=== PATIENT | male | born 1950 | race Caucasian/White ===

== ENCOUNTER 2017-10-05 09:24 | Observation (INO) ==
[2017-10-05] MEDS ORDERED: Acetaminophen 325 MG Tablet PO PRN ×2 (11:55→11:57)
[2017-10-05] MEDS ORDERED: Bisacodyl 10 MG Supp RECTAL PRN (11:55)
[2017-10-05] MEDS ORDERED: Naloxone Inj 0.4 MG/ML Vial IV.PUSH PRN (11:57)
[2017-10-05] MEDS ORDERED: Morphine Inj 4 MG/ML Vial IV.PUSH PRN (11:57)
--- NOTE | 2017-10-05 14:49 | P.HP ---
History of Present Illness Primary Care Physician: Johanny Morgan History of Present Illness: This is a 67-year-old male with a history of hypertension, hyperlipidemia and BPH. He was seen in [facility] emergency room for a hand injury. States he was watching somebody install a glass window when his hand was caught. He sustained a laceration on the dorsum of the left hand in the MP joint of the index finger with tendon involvement. Patient denies numbness or inability to flex or extend left index finger. Hand surgery recommended patient to be transferred to the main hospital for repair. All other systems reviewed negative Review of Systems All other systems reviewed negative except as stated in HPI PMFSH - History History Provided By: Patient - Medical History Medical History: Medical History (Last Reviewed 10/05/17 @ 10:09 by Vinicius Bernal MD) BPH (benign prostatic hyperplasia) HTN (hypertension) High cholesterol - Surgical History Surgical History: Surgical History (Last Reviewed 10/05/17 @ 10:09 by Vinicius Bernal MD) History of prostate surgery - Family History Family History: Family History (Last Updated 10/05/17 @ 14:45 by Arley Cordon MD) Other Lung cancer - Tobacco History Second Hand Smoke Exposure: No Smoking Status: Never smoker - Alcohol History How Often Do You Have a Drink Containing Alcohol: Monthly or less - Substance Use History Substance History: No History of Abuse - Immunization History Tetanus Immunization Year if Known: 2016 Medications and Allergies Active Medications: Active Medications Acetaminophen (Tylenol) 650 mg PO Q4H PRN PRN Reason: Temp > 100.4 Acetaminophen (Tylenol) 650 mg PO Q6HR PRN PRN Reason: PAIN SCALE 1 TO 2 Hydrocodone Bitart/Acetaminophen ([place] 5/325) 1 tab PO Q4H PRN PRN Reason: PAIN SCALE 3 TO 5 Hydrocodone Bitart/Acetaminophen ([place] 7.5/325) 1 tab PO Q4H PRN PRN Reason: PAIN SCALE 6 TO 10 Al Hydroxide/Mg Hydroxide (Milk Of Magnesia Liq) 30 ml PO Q12H PRN PRN Reason: Mild Constipation Bisacodyl (Dulcolax Supp) 10 mg RECTAL DAILY PRN PRN Reason: SEVERE CONSITIPATION Clonidine HCl (Catapres) 0.1 mg PO Q6H PRN PRN Reason: SEE LABEL COMMENTS Enalaprilat (Vasotec Inj) 1.25 mg IV.PUSH Q6H PRN PRN Reason: SEE LABEL COMMENTS Potassium Chloride/Sodium Chloride (Potassium Chlor 20 Meq/Nacl 0.45% Inj) 1, 000 mls @ 70 mls/hr IV.CONT .[id number] [facility] Lactulose (Lactulose Liq) 30 ml PO DAILY PRN PRN Reason: SEVERE CONSITIPATION Morphine Sulfate (Morphine Inj) 1 mg IV.PUSH Q3H PRN PRN Reason: BREAKTHROUGH PAIN Naloxone HCl (Narcan Inj) 0.4 mg IV.PUSH UNSCH PRN PRN Reason: SEE LABEL COMMENTS Ondansetron HCl (Zofran Inj) 4 mg IV.PUSH Q6H PRN PRN Reason: NAUSEA OR VOMITING Senna/Docusate Sodium (Gabby-Colace) 1 tab PO BID [facility] Sennosides (Senokot) 17.2 mg PO Q12H PRN PRN Reason: Moderate Constipation Allergies Allergy/AdvReac Type Severity Reaction Status Date / Time No Known Allergies Allergy Verified 10/05/17 09:40 Home Medications Medication Instructions Recorded Confirmed Type amlodipine 5 mg PO DAILY 10/05/17 10/05/17 History fenofibrate nanocrystallized 145 mg PO DAILY 10/05/17 10/05/17 History finasteride 5 mg PO DAILY 10/05/17 10/05/17 History pravastatin 80 mg PO DAILY 10/05/17 10/05/17 History Exam Narrative: See vital signs in the ED [facility] GENERAL: Well-developed, well-nourished in no distress SKIN: Warm and dry. HEAD: Atraumatic. Normocephalic. EYES: Pupils equal and round. No scleral icterus. No injection or drainage. ENT: No nasal bleeding or discharge. Mucous membranes pink and moist. NECK: Trachea midline. No JVD. CARDIOVASCULAR: Regular rate and rhythm. RESPIRATORY: No accessory muscle use. Clear to auscultation. Breath sounds equal bilaterally. GASTROINTESTINAL: Abdomen soft, non-tender, nondistended. MUSCULOSKELETAL: Extremities without clubbing, cyanosis, or edema. No obvious deformities. Left hand with dry dressing. Neurovascularly intact NEUROLOGICAL: Awake and alert. No obvious cranial nerve deficits. Motor grossly within normal limits. Five out of 5 muscle strength in the arms and legs. Normal speech. PSYCHIATRIC: Appropriate mood and affect; insight and judgment normal. Caprini VTE Risk Assessment Caprini VTE Risk Assessment: Moderate/High Risk (score >= 2) Caprini Risk Assessment Model: Point Value = 1 Point Value = 2 Point Value = 3 Point Value = 5 Age 41-60 Minor surgery BMI > 25 kg/m2 Swollen legs Varicose veins or History of unexplained or recurrent spontaneous Oral contraceptives or hormone replacement Sepsis (< 1 month) Serious lung disease, including pneumonia (< 1 month) Abnormal pulmonary function Acute myocardial infarction Congestive heart failure (< 1 month) History of inflammatory bowel disease Medical patient at bed rest Age 61-74 Arthroscopic surgery Major open surgery (> 45 min) Laparoscopic surgery (> 45 min) Malignancy Confined to bed (> 72 hours) Immobilizing plaster cast Central venous access Age >= 75 History of VTE Family history of VTE Factor V Leiden Prothrombin [id number] Lupus anticoagulant Anticardiolipin antibodies Elevated serum homocysteine Heparin-induced thrombocytopenia Other congenital or acquired thrombophilia Stroke (< 1 month) Elective arthroplasty Hip, pelvis, or leg fracture Acute spinal cord injury (< 1 month) Prophylaxis Regimen: Total Risk Factor Score Risk Level Prophylaxis Regimen 0-1 Low Early ambulation 2 Moderate Order ONE of the following: *Sequential Compression Device (SCD) *Heparin 5000 units SQ BID 3-4 Higher Order ONE of the following medications: *Heparin 5000 units SQ TID *Enoxaparin/Lovenox 40 mg SQ daily (WT < 150 kg, CrCl > 30 mL/min) *Enoxaparin/Lovenox 30 mg SQ daily (WT < 150 kg, CrCl > 10-29 mL/min) *Enoxaparin/Lovenox 30 mg SQ BID (WT < 150 kg, CrCl > 30 mL/min) AND/OR *Sequential Compression Device (SCD) 5 or more Highest Order ONE of the following medications: *Heparin 5000 units SQ TID (Preferred with Epidurals) *Enoxaparin/Lovenox 40 mg SQ daily (WT < 150 kg, CrCl > 30 mL/min) *Enoxaparin/Lovenox 30 mg SQ daily (WT < 150 kg, CrCl > 10-29 mL/min) *Enoxaparin/Lovenox 30 mg SQ BID (WT < 150 kg, CrCl > 30 mL/min) AND *Sequential Compression Device (SCD) Assessment and Plan - Plan This is a 67-year-old male with a history of hypertension, hyperlipidemia and BPH. He was seen in [facility] emergency room for a hand injury. States he was watching somebody install a glass window when his hand was caught. He sustained a laceration on the dorsum of the left hand in the MP joint of the index finger with tendon injury. Laceration of the dorsum of left hand with tendon involvement. Keep patient n.p.o. start IV fluids and pain management with Lortab and IV morphine. Patient counseled regarding narcotics. EFORCSE checked. Patient received IV Rocephin in the ED. Consult hand surgery. Will obtain PT and PTT and EKG. CBC, BMP unremarkable. Hand x-ray image interpreted by me with no bony injury DVT prophylaxis with SCD and early ambulation Discharge Planning: per hand surgery
[2017-10-05] MEDS: KCL 20 mEq/NACL 0.45% Inj 1,000 ML IV.CONT SCH (15:46)
[2017-10-05] MEDS ORDERED: Finasteride 5 MG Tablet PO SCH (19:00)
[2017-10-05] MEDS ORDERED: Fenofibrate 145 MG Tablet PO SCH (19:00)
[2017-10-05] MEDS ORDERED: amLODIPine 5 MG Tablet PO SCH (19:00)
[2017-10-05] MEDS ORDERED: Senna/Docusate Sodium 8.6/50 MG Tablet PO SCH (21:00)
[2017-10-06] MEDS: KCL 20 mEq/NACL 0.45% Inj 1,000 ML IV.CONT SCH (05:34)
[2017-10-06] MEDS ORDERED: Neomycin/Polymyxin G.U. Irrigant 1 ML Ampul ONE (07:37)
[2017-10-06] MEDS ORDERED: Lidocaine 2% Inj 50 ML Vial ONE (07:48)
[2017-10-06] MEDS ORDERED: Metoprolol Tartrate 25 MG Tablet PO SCH (08:15)
[2017-10-06] MEDS ORDERED: Chlorhexidine Gluconate 2% 1 Pack (2 Cloths) TOPICAL SCH (08:15)
--- NOTE | 2017-10-06 08:56 | ECG ---
Date Performed: 10/05/2017 Time Performed: 15:09:23 PTAGE: 67 years EKG: SINUS BRADYCARDIA BORDERLINE ECG NO PREVIOUS TRACING DOCTOR: Erica Melara Interpretating Date/Time 10/06/2017 08:54:08
[2017-10-06] MEDS ORDERED: Sodium Chlor 0.9% Inj 500 ML IV.SIG SCH (09:00)
[2017-10-06] MEDS ORDERED: fentaNYL Citrate Inj 100 MCG/2 ML Ampul ONE (10:06)
--- NOTE | 2017-10-06 10:20 | P.PNOP ---
Subjective Interval history: Please see dictated consult note. Patient comfortable in PACU. Physical Exam Vital signs: Vital Signs 10/05/17 15:13 10/05/17 20:18 10/05/17 23:37 Temperature 97.7 F 98.2 F 98.1 F Pulse Rate 57 L 64 64 Respiratory Rate 18 18 18 Blood Pressure 132/79 127/78 131/76 Pulse Oximetry 98 99 99 10/06/17 03:06 10/06/17 10:01 Temperature 98.4 F 97.7 F Pulse Rate 64 64 Respiratory Rate 18 16 Blood Pressure 128/78 128/92 H Pulse Oximetry 95 Intake & Output 10/05/17 10/06/17 10/06/17 18:59 06:59 18:59 Intake Total 54 / 54 1000 / 1000 600 / 600 Output Total 5 / 5 Balance 54 / 54 1000 / 1000 595 / 595 Weight 73.2 kg Intake: IV 54 / 54 1000 / 1000 Potassium Chlor 20 mEq/NACL 0. 54 / 54 1000 / 1000 45% Inj 1,000 ML @ 70 mls/hr IV .CONT .[id number] [facility] Rx#:[id number] Anesthesia Amount 600 / 600 Output: Estimated Blood Loss 5 / 5 Other: # Voids 3 Date of Last Bowel Movement 10/05/17 Weight On Admission 73.2 kg Narrative: Splint in place, <2 sec capillary refill to index finger Assessment and Plan - Assessment and Plan POD0 s/p EIP & EDC left index finger and sagittal band repair -Patient to keep splint on at all times, Do NOT remove splint -Okay to d/c from hand surgery standpoint, call for followup in office this week
--- NOTE | 2017-10-06 10:28 | MB ---
cc: Anayeli Srivastava MD DATE: 10/06/2017 REASON FOR CONSULTATION: Extensor tendon laceration, left index finger. HISTORY OF PRESENT ILLNESS: Flavio Shelby is a pleasant 67-year-old right-hand dominant retired male who presented to [facility] emergency room yesterday after sustaining a laceration to the dorsum of his left hand, when a window accidentally lacerated the dorsum of his left hand. He was transferred to the main hospital for surgical evaluation. He denies any prior significant injuries to the left hand. He denies any paresthesias over the left hand. He reports moderate pain over the left hand. His main complaint is inability to extend the left index finger. PAST MEDICAL HISTORY: Hypertension, hypercholesterolemia and BPH. PAST SURGICAL HISTORY: Prostate surgery. SOCIAL HISTORY: The patient denies any tobacco, alcohol or drug use. MEDICATIONS: Vasotec. ALLERGIES: NO KNOWN DRUG ALLERGIES. PHYSICAL EXAMINATION: MUSCULOSKELETAL: The patient has a curvilinear laceration over the dorsum of the left index finger metacarpophalangeal joint with obvious laceration of the extensor tendons of the left index finger. The patient is unable to extend the left index finger. Function is intact to the FDS and FDP. Sensation intact to the radial and ulnar side. Less than 2 second capillary refill. IMAGING STUDIES: X-rays were reviewed of the left hand which shows no evidence of fracture or dislocation. ASSESSMENT AND PLAN: A 67-year-old male with complete laceration of the extensor tendons of the left index finger. He elected to proceed with surgical intervention at the earliest available time. Risks were explained to include but not limited to wound complication, infection, rupture of the repair, need for additional surgery, stiffness, and pain and he elected to proceed. This was initially scheduled to be performed yesterday on 10/05/2017 but due to multiple traumas was bumped until today. Anayeli Srivastava MD [facility] , 10:12 AM , 10:18 AM [facility]
--- NOTE | 2017-10-06 10:39 | MP ---
cc: Anayeli Srivastava MD DATE OF OPERATION: PREOPERATIVE DIAGNOSES: 1. Open laceration, left hand. 2. Laceration extensor indicis proprius left index finger. 3. Laceration extensor digitorum communis left index finger. POSTOPERATIVE DIAGNOSES: 1. Open laceration, left hand. 2. Laceration extensor indicis proprius left index finger. 3. Laceration extensor digitorum communis left index finger. 4. Sagittal band laceration, radial sagittal band left index finger. PROCEDURE PERFORMED: 1. Irrigation and debridement, left hand including skin, subcutaneous tissue, muscle and bone. 2. Extensor tendon repair, left index finger extensor indicis proprius. 3. Extensor tendon repair, left index finger extensor digitorum communis. 4. Radial sagittal band repair, left index finger. SURGEON: Anayeli Srivastava MD ANESTHESIA: General and local. TOURNIQUET TIME: 40 minutes at 200 mmHg. INDICATIONS: Flavio Shelby is a 67-year-old right-hand dominant male who sustained a laceration of the dorsum of the left index finger yesterday. He presented with inability to extend the left index finger with a curvilinear laceration over the dorsum of the left index finger metacarpophalangeal joint. The patient elected to proceed with surgical intervention. Risks were explained and not limited to wound complication, infection, stiffness, pain, rupture of the repair and he elected to proceed. DESCRIPTION OF PROCEDURE: The patient was identified in the preoperative holding area, the correct extremity was marked. The patient was taken to the operating room. Anesthesia was induced. His left upper extremity was prepped and draped in normal sterile fashion. The curvilinear incision was extended radially and proximally to identify the tendon ends. The wound was irrigated and debrided with antibiotic saline as well as rongeurs. This did not extend into the joint itself, but the patient did have complete laceration of both extensor tendons to the left index finger, including the EIP and EDC to the left index finger. The patient also had ulnar deviation of the extensor tendon laceration of the radial sagittal band of the left index finger. Initially, a 4-0 FiberWire was used in a Walker and horizontal mattress fashion to repair the EIP tendon. This was also performed in a similar manner for the EDC tendon. An epitendinous repair using a 6-0 nylon was then performed. Finally, the sagittal band was repaired using a 4-0 PDS. The patient had regained extension of the left index finger was tenodesis and improved tracking of the extensor tendons over the metacarpophalangeal joint. Tourniquet was released. Hemostasis was obtained. There was less than 2-second capillary refill to the finger, as well as good capillary refill to the flap. The skin was closed with 5-0 nylon. Approximately 10 mL of 2% lidocaine with no epinephrine was used for local anesthesia. The patient was placed into an extension splint and awoken from anesthesia without any complications. I will see him this week in conjunction with our hand therapist for a custom splint. He may be discharged from a hand surgery standpoint. Anayeli Srivastava MD [facility] , 10:16 AM , 10:23 AM [facility]
--- NOTE | 2017-10-06 11:15 | P.PN ---
Subjective Interval history: Follow-up complex laceration of left index finger status post repair. States he is okay cleared for discharge by hand surgery. Physical Exam Vital signs: Vital Signs 10/05/17 15:13 10/05/17 20:18 10/05/17 23:37 Temperature 97.7 F 98.2 F 98.1 F Pulse Rate 57 L 64 64 Respiratory Rate 18 18 18 Blood Pressure 132/79 127/78 131/76 Pulse Oximetry 98 99 99 10/06/17 03:06 10/06/17 10:01 10/06/17 10:40 Temperature 98.4 F 97.7 F Pulse Rate 64 64 56 L Respiratory Rate 18 16 20 Blood Pressure 128/78 128/92 H 110/56 L Pulse Oximetry 95 98 Intake & Output 10/05/17 10/06/17 10/06/17 18:59 06:59 18:59 Intake Total 54 / 54 1000 / 1000 600 / 600 Output Total 5 / 5 Balance 54 / 54 1000 / 1000 595 / 595 Weight 73.2 kg Intake: IV 54 / 54 1000 / 1000 Potassium Chlor 20 mEq/NACL 0. 54 / 54 1000 / 1000 45% Inj 1,000 ML @ 70 mls/hr IV .CONT .[id number] [facility] Rx#:[id number] Anesthesia Amount 600 / 600 Output: Estimated Blood Loss 5 / 5 Other: # Voids 3 Date of Last Bowel Movement 10/05/17 Weight On Admission 73.2 kg Narrative: Well-developed and well-nourished in no distress Regular rate and rhythm Clear to auscultation Splint in place, <2 sec capillary refill to index finger Results - Procedures s/p EIP & EDC left index finger and sagittal band repair Assessment and Plan - Plan This is a 67-year-old male with a history of hypertension, hyperlipidemia and BPH. He was seen in [facility] emergency room for a hand injury. States he was watching somebody install a glass window when his hand was caught. He sustained a laceration on the dorsum of the left hand in the MP joint of the index finger with tendon injury. Laceration of the dorsum of left hand with tendon involvement status post repair. Stable cleared for discharge by hand surgery to wear splint at all times. Continue pain management with Lortab counseled regarding narcotics DVT prophylaxis with SCD and early ambulation Discharge Planning: Discharge patient to home Condition on discharge: Improved Regular Diet as tolerated Ad Francesca activity no driving Rx written: Lortab Follow-up with primary care physician and hand surgery
[2017-10-06] MEDS ORDERED: Lidocaine PF 1% Inj 5 ML Syringe INFILTRATN ONE (12:00)
--- NOTE | 2017-10-06 14:45 | ED ---
HPI Related Data Home Medications Medication Instructions Recorded Confirmed amlodipine 5 mg PO DAILY 10/05/17 10/05/17 fenofibrate nanocrystallized 145 mg PO DAILY 10/05/17 10/05/17 finasteride 5 mg PO DAILY 10/05/17 10/05/17 pravastatin 80 mg PO HS 10/05/17 10/05/17 turmeric (bulk) [Curcumin] 1 tsp MISCELLANEOUS EVERY OTHER DAY 10/05/17 10/05/17 Previous Rx's Medication Instructions Recorded hydrocodone-acetaminophen 1 tab PO Q6H PRN #12 tab 10/06/17 Allergies Allergy/AdvReac Type Severity Reaction Status Date / Time No Known Allergies Allergy Verified 10/05/17 09:40 [facility] Social History Social History Substance History: No History of Abuse Second Hand Smoke Exposure: No Smoking Status: Former smoker Tobacco Type: Cigarettes How Often Do You Have a Drink Containing Alcohol: 2 to 4 times a month Recent Travel in [facility] within the Last 8 Weeks: Yes Recent Out of Country Travel within the Last 8 Weeks: Yes Immunization History Tetanus Immunization Year if Known: 2017 Course Initial Documented Vital Signs Temperature 97.7 F 10/05/17 15:13 Pulse Rate 57 L 10/05/17 15:13 Respiratory Rate 18 10/05/17 15:13 Blood Pressure 132/79 10/05/17 15:13 Pulse Oximetry 98 10/05/17 15:13 Last Documented Vital Signs Temperature 97.5 F L 10/06/17 11:33 Pulse Rate 57 L 10/06/17 11:33 Respiratory Rate 18 10/06/17 11:33 Blood Pressure 125/71 10/06/17 11:33 Pulse Oximetry 98 10/06/17 11:33 Discharge Plan Discharge Disposition Patient Disposition: 02 Transfer To [facility] [place] Condition Condition: Stable Discharge Order Discharge Orders: Discharge Order (Routine); Ordered 10/06/17 Ordered By: Arley Cordon Hand Surgery Clear for Discharge (Routine); Ordered 10/06/17 Ordered By: Anayeli Srivastava Discharge Details Diagnosis: Tendon laceration, Laceration Physicians Team ED Provider: Vinicius Bernal Attending Provider: Arley Cordon Post Discharge Care Plan Care Plan Goals: Your Health Problems: Goals to Promote Your Health: * To prevent worsening of your condition * To maintain your health at the optimal level Directions to Meet Your Goals: * Take your medications as prescribed * Follow your dietary instruction * Follow activity as directed * Keep your appointments as scheduled * Take your immunizations and boosters as scheduled * If your symptoms worsen call your PCP * If no PCP go to Urgent Care or Emergency Room Smoking is dangerous to your health. Avoid second hand smoke. You may reach the 24-hour crisis hotline for domestic abuse at . Status ED Status: Admitted Observation Patient
[2017-10-08 19:40] VITALS: BP 125/71; PULSE 57; RESP 18; TEMP 97.5; O2SAT 98
== END 2017-10-06 12:24 | disposition home or self-care (01) ==
LOC: NEDDLT 09:24 → NEPGCP 09:24
PROVIDERS: ADMIT Internal Medicine; ATTEND Internal Medicine